=== PATIENT | male | born 1970 | race Caucasian/White ===

== ENCOUNTER 2021-02-04 02:06 | Emergency (ER) | payer OTHER, MEDICAID ==
[~2021-02-04] VITALS: Ht 172.7 cm; Wt 108.9 kg
[2021-02-04 03:46] VITALS: BP 142/76
== END 2021-02-04 03:45 | disposition home or self-care (01) ==
LOC: M.ERS 02:06
DX: M25.572 Pain in left ankle and joints of left foot (principal)